=== PATIENT | female | born 1985 | race Caucasian/White ===

== ENCOUNTER 2017-12-01 15:44 | Emergency (ER) | payer OTHER ==
[~2017-12-01] VITALS: Ht 165.1 cm; Wt 66.0 kg
[~2017-12-01 15:44] MED LIST: PERM5CRE TOPICAL; PREN29TA PO; Z.0.BCPILL
[2017-12-01 15:45] VITALS: BP 122/58; PULSE 86; RESP 18; TEMP 99; O2SAT 100
[2017-12-01 18:26] LABS: BACTERIA, URINE RARE /hpf; BILIRUBIN, URINE NEG (NEG); BLOOD, URINE MOD (NEG); GLUCOSE,URINE NEG (NEG); KETONE, URINE NEG (NEG); NITRITE,URINE NEG (NEG); SQUAMOUS EPITHELIAL CELL URINE 4 /hpf (0-5); URINE COLOR LIGHT-YELLOW (YELLW/STRAW); URINE LEUKOCYTE ESTERASE NEG (NEG)
--- NOTE | 2017-12-01 19:55 | PD ---
HPI Chief Complaint: Related Problem Time Seen by Provider: 17:20 Travel History International Travel<30 days: No Contact w/Intl Traveler<30days: No Traveled to known affect area: No History of Present Illness HPI The patient is 31 years old 2 para 1, 8 and half weeks and complains of dark vaginal discharge today. two episodes occurred, scant both times. She has yet to undergo ultrasound with [employer], whose name she forgets at time of ed evaluation however has seen her and advised ed evaluation tonight. She has no abdominal pain nausea or vomiting. She has no fever. No back pain or vomiting. Timing resolved. PFSH Past Medical History ?: : 0 Para: 0 Social History Alcohol Use: No Tobacco Use: No Substance Use: No Allergies-Medications (Allergen,Severity, Reaction): Coded Allergies: No Known Allergies (Verified Adverse Reaction, Unknown, 12/01/17) Reported Meds & Prescriptions Reported Meds & Active Scripts Active Plus Iron Tablet (Pnv,Calcium 72/Iron,Carb/Folic) 29 Mg Iron-1 Mg Tablet 1 Tab PO DAILY Please give prental vitamin with folate and added iron. Review of Systems Except as stated in HPI: all other systems reviewed are Neg General / Constitutional: No: Fever Physical Exam Narrative GENERAL: 31-year-old female well-nourished well-developed no acute distress SKIN: Warm and dry. HEAD: Atraumatic. Normocephalic. EYES: Pupils equal and round. No scleral icterus. No injection or drainage. ENT: No nasal bleeding or discharge. Mucous membranes pink and moist. NECK: Trachea midline. No JVD. CARDIOVASCULAR: Regular rate and rhythm. RESPIRATORY: No accessory muscle use. Clear to auscultation. Breath sounds equal bilaterally. GASTROINTESTINAL: Abdomen soft, non-tender, nondistended. Hepatic and splenic margins not palpable. MUSCULOSKELETAL: Extremities without clubbing, cyanosis, or edema. No obvious deformities. NEUROLOGICAL: Awake and alert. No obvious cranial nerve deficits. Motor grossly within normal limits. Five out of 5 muscle strength in the arms and legs. Normal speech. PSYCHIATRIC: Appropriate mood and affect; insight and judgment normal. Data Data Last Documented VS Vital Signs Date Time Temp Pulse Resp B/P (MAP) Pulse Ox O2 Delivery O2 Flow Rate FiO2 12/01/17 20:57 12/01/17 15:45 99.0 86 18 100 Room Air Orders Orders Beta Hcg (Quant/Titer) (12/01/17 17:32) Urinalysis - C+S If Indicated (12/01/17 17:32) Rhogam Only (12/01/17 17:32) Us Pelvis (Ques Pr/Ect)W Trans (12/01/17 ) Ed Discharge Order (12/01/17 20:44) Type And Screen (12/01/17 17:45) Labs Laboratory Tests Test 12/01/17 17:45 Urine Color LIGHT-YELLOW Urine Turbidity CLEAR Urine pH 7.0 Urine Specific Mcallister 1.008 Urine Protein NEG mg/dL Urine Glucose (UA) NEG mg/dL Urine Ketones NEG mg/dL Urine Occult Blood MOD Urine Nitrite NEG Urine Bilirubin NEG Urine Urobilinogen LESS THAN 2.0 MG/DL Urine Leukocyte Esterase NEG Urine RBC 3 /hpf Urine WBC 1 /hpf Urine Squamous Epithelial Cells 4 /hpf Urine Bacteria RARE /hpf Microscopic Urinalysis Comment CULT NOT INDICATED Human Chorionic Gonadotropin, Quant [id number] MIU/ML MDM Medical Decision Making Medical Screen Exam Complete: Yes Emergency Medical Condition: Yes Medical Record Reviewed: Yes Differential Diagnosis IUP, UTI, ectopic , ov torsion, appendicitis, TOA, cervicitis, BV, Trichomoniasis, ov cyst, hernia, mittelschmerz, pain from menstruation Narrative Course The beta hCG is 21,000 Transabdominal ultrasound at the bedside shows no heart rate Last Impressions Pelvis Ultrasound 12/01/17 0000 Signed Impressions: Service Date/Time: Friday, December 01, 2017 19:51 - CONCLUSION: 1. Empty gestational sac with measurements that would be characteristic of a 6 week 3 day gestation. No pole or yolk sac. No adnexal mass or free fluid. Chencho Mullen MD pt states she is rh negative rhogam cannot be administered without rh typing done here pt has been five plus hours such that adding rh typing would be significant burden pt understands necessity of follow up on Monday for rhogam and has verbalized intent to do so pt understands she can return to ed if necessary anytime Diagnosis Primary Impression: Blighted ovum Referrals: Chief Digital Media Officer 2 days Additional Instructions: your beta hcg today is 21,400 you must repeat your beta hcg test in 48 hours and have the results reviewed by your [employer] as this is the standard of care for vaginal bleeding during the first trimester of . Disposition: 01 DISCHARGE HOME Condition: Stable Mason Rueda MD Dec 01, 2017 19:55
--- NOTE | 2017-12-01 20:42 | RADRPT ---
EXAM DATE/TIME: 12/01/2017 19:51 [facility] COMPARISON: No previous studies available for comparison. INDICATIONS : Bleeding. LAB(S): Beta-hC MEDICAL HISTORY : None. SURGICAL HISTORY : None. ENCOUNTER: Initial ACUITY: 3 days PAIN SCORE: 0/10 LOCATION: Bilateral pelvis MEASUREMENTS: UTERUS: 9.1 x 7.8 x 4.5 cm ENDOMETRIAL STRIPE: 16 mm RIGHT OVARY: 3.5 x 2.4 x 2.0 cm LEFT OVARY: 3.8 x 1.2 x 1.1 cm FREE FLUID: No FINDINGS: Gestational sac is visualized but no evidence for pole. By gestational sac size gestation shoul d be 6 weeks and 3 days. No yolk sac. No free fluid. Ovaries unremarkable. Small cyst lower uterine segment. CONCLUSION: 1. Empty gestational sac with measurements that would be characteristic of a 6 week 3 day gestation. No pole or yolk sac. No adnexal mass or free fluid. Chencho Mullne MD on December 01, 2017 at 20:37 Board Certified Radiologist. This report was verified electronically.
== END 2017-12-01 21:01 | disposition home or self-care (01) ==
LOC: NEPD 15:44
DX: O02.0 Blighted ovum and nonhydatidiform mole (principal); Z3A.01 Less than 8 weeks gestation of pregnancy; Z79.899 Other long term (current) drug therapy
CPT/HCPCS: 76700; 76817; 81001; 84702; 86850; 86900; 86901

== ENCOUNTER → 2017-12-21 | Outpatient (CLI) | payer OTHER ==
[~2017-12-21] MED LIST changes: -PERM5CRE TOPICAL; -Z.0.BCPILL
== END ==
LOC: CLAB 15:36
PROVIDERS: ATTEND Family Medicine
DX: O03.9 Complete or unspecified spontaneous abortion without complication (principal)
CPT/HCPCS: 36415; 84702